=== PATIENT | male | born 1975 | race Caucasian/White ===

== ENCOUNTER 2021-03-12 17:13 | Emergency (ER) | payer BC ==
--- NOTE | 2021-03-12 17:56 | EDM.PDOC ---
ED HPI GENERAL MEDICAL PROBLEM - General Chief Complaint: Head Injury Stated Complaint: HEAD INJURY Time Seen by Provider: 03/12/21 17:56 - History of Present Illness INITIAL COMMENTS - FREE TEXT/NARRATIVE: 45-year-old male presents the emergency room with persistent dizziness and some nausea following a head injury 7 days ago. Patient was instructing people on some fighting skills and the patient was taken down he hit his head pretty hard. He had no loss of consciousness but has had quite a bit of dizziness and some nausea with change of position turning his head mostly to the right. This has not been getting any better. Patient also has significant neck discomfort following this injury. He is not aware that he had significant neck pain immediately after this occurred. He has not had any neurologic symptoms associated with this his pain seems to be localized to his lower neck region. Patient is a smoker smokes about a pack a day Posterior Headache Pain Score (Numeric/FACES): 7 - Related Data Allergies Allergy/AdvReac Type Severity Reaction Status Date / Time No Known Allergies Allergy Verified 05/27/14 17:51 Home Meds: Home Meds . [No Known Home Meds] 03/12/21 [History] Past Medical History - Past Health History Medical/Surgical History: Denies Medical/Surgical History Neurological History: Reports: Concussion Other Neuro History: several - Infectious Disease History Infectious Disease History: Reports: Chicken Pox - Past Surgical History GI Surgical History: Reports: Appendectomy Social & Family History - Tobacco Use Tobacco Use Status *Q: Current Every Day Tobacco User Years of Tobacco use: 15 Packs/Tins Daily: 1 - Caffeine Use Caffeine Use: Reports: Coffee, Energy Drinks, Tea - Recreational Drug Use Recreational Drug Use: No - Living Situation & Occupation Living situation: Reports: Occupation: Employed ED ROS GENERAL - Review of Systems Review Of Systems: See Below Constitutional: Reports: No Symptoms HEENT: Reports: No Symptoms Respiratory: Reports: No Symptoms Cardiovascular: Reports: No Symptoms GI/Abdominal: Reports: Nausea. Denies: Abdominal Pain : Reports: No Symptoms Musculoskeletal: Reports: Neck Pain Neurological: Reports: Dizziness, Headache. Denies: Numbness, Paresthesia ED EXAM, HEAD INJURY - Physical Exam Exam: See Below Exam Limited By: No Limitations General Appearance: Alert, No Apparent Distress Head: Atraumatic, Normocephalic Nexus Criteria: Posterior, Midline Cervical Tenderness. No: Evidence of Intoxication, Altered Level of Consciousness, Focal Neurological Deficit, Painful Distraction Injuries Eyes: Bilateral Eye: Normal Inspection, PERRL Ears: Normal External Exam, Normal Canal, Hearing Grossly Normal, Normal TMs Nose: Normal Inspection, Normal Mucousa, No Blood Throat/Mouth: Normal Inspection, Normal Lips, Normal Teeth, Normal Gums, Normal Oropharynx, Normal Voice, No Airway Compromise Neck: Other (Venous significant midline discomfort in the lower cervical region. With bilateral paraspinous muscle spasm) Respiratory: No Respiratory Distress, Lungs Clear, Normal Breath Sounds Cardiovascular: Regular Rate, Rhythm, No Edema, No Murmur Neurologic: Other (Cranial nerves II through XII grossly intact all muscle groups the upper extremities are equal and appropriate bilaterally. Patient does have some discomfort with motion of the base of the neck. However, this is thought to be soft tissue related) - [place] Coma Score Best Eye Response (Doc): (4) Open Spontaneously Best Verbal Response ([place]): (5) Oriented Best Motor Response ([place]): (6) Obeys Commands Course - Vital Signs Last Recorded V/S: Last Vital Signs Temp 36.8 C 03/12/21 17:19 Pulse 100 03/12/21 17:19 Resp 20 03/12/21 17:19 BP 146/93 H 03/12/21 17:19 Pulse Ox 97 03/12/21 17:19 - Orders/Labs/Meds Orders: Active Orders 24 hr Category Date Time Status Cervical Spine Comp wo Cont [MR] Stat Exams 03/12/21 18:14 Ordered Cervical Spine wo Cont [CT] Stat Exams 03/12/21 18:40 Ordered Head wo Cont [CT] Stat Exams 03/12/21 18:14 Ordered - Re-Assessments/Exams Free Text/Narrative Re-Assessment/Exam: 03/12/21 21:19 T is negative for acute changes. Cervical spine shows significant degenerative changes at the base of the neck refer to CT report for this also of note is a right lung apices lesion that needs follow-up this was discussed in detail and the importance of follow-up with the patient and significant partner. We discussed treatment options for the dizziness and intermittent nausea the patient would like to hold off on this at this time. Departure - Departure Time of Disposition: 20:59 Disposition: Home, Self-Care 01 Clinical Impression: Head injury, closed, with concussion, Cervical myofascial strain, Degenerative arthritis of cervical spine - Discharge Information Instructions: Concussion, Adult, [id number] Referrals: PCP,None [Primary Care Provider] - Forms: ED Department Discharge Additional Instructions: Return to the emergency room with any questions problems worsening symptoms. Follow-up with a local healthcare provider you can follow-up with the hospital clinic early this next week for recheck on your concussion and also discussed the abnormality noted at the top of your right lung on the neck CT. It is recommended that you have a follow-up CT in 3 to 6 months. The phone number to the hospital clinic is [phone]. You may follow-up with your chiropractor as needed. Inform them you have some significant arthritis developing in your neck but no fracture is identified on this evening study the central canal caliber is well-maintained there is some developing stenosis on the right at C5-C6 and C6-C7 the most significant osteophyte formation is at C6-7 and to a lesser degree at C5-6. Avoid driving until your dizziness is resolved. Sepsis Event Note (ED) - Focused Exam Vital Signs: Vital Signs Temp Pulse Resp BP Pulse Ox 03/12/21 17:19 36.8 C 100 20 146/93 H 97 - My Orders Last 24 Hours: My Active Orders 03/12/21 18:14 Cervical Spine Comp wo Cont [MR] Stat Head wo Cont [CT] Stat 03/12/21 18:40 Cervical Spine wo Cont [CT] Stat - Assessment/Plan Last 24 Hours: My Active Orders 03/12/21 18:14 Cervical Spine Comp wo Cont [MR] Stat Head wo Cont [CT] Stat 03/12/21 18:40 Cervical Spine wo Cont [CT] Stat
--- NOTE | 2021-03-13 08:36 | CT ---
Head CT Technique: Multiple axial sections through the brain were obtained. Intravenous contrast was not utilized. Reconstructed coronal and sagittal images were obtained. Comparison: No prior intracranial imaging is available. Findings: Ventricles along with basal cisterns and sulci over the convexities are within normal limits for the patient's age. No abnormal parenchymal densities are seen. No evidence of intracranial hemorrhage is present. Bone window settings were reviewed. Mucosal thickening is noted within both maxillary sinuses as well as ethmoid sinuses and frontal sinuses. Mild mucosal thickening is noted within the sphenoid sinuses. No acute calvarial abnormality is appreciated. Visualized mastoid sinuses are also clear. Impression: 1. Sinus findings most likely representing chronic sinusitis. Please correlate. 2. No acute intracranial abnormality is appreciated. Diagnostic code #2 I agree with preliminary report from [facility], finalized on 03/12/21, 8:36 PM CDT, code 1
--- NOTE | 2021-03-13 08:45 | CT ---
CT cervical spine Technique: Multiple axial sections were obtained from above the C1 level inferiorly through the T3 level. Reconstructed coronal and sagittal images were obtained. Comparison: No prior cervical spine imaging is available. Findings: Mucosal thickening is seen within the maxillary sinuses and sphenoid sinus. Visualized mastoid sinuses show nothing acute. Moderate disc space narrowing is noted at C6-7 and mild disc space narrowing at C5-6. Anterior osteophytes are noted at C4-5 through C6-7 as well as at T1-2. T1-2 disc also shows slight posterior osteophytes. MIld posterior osteophytes are also noted at C5-6 and moderate at C6-7. No bony central canal stenosis is seen. There is moderate right-sided neural foraminal stenosis noted at C5-6. Other neural foramina are felt to be fairly well patent. No fracture is seen. No abnormal subluxation is seen. Partially visualized groundglass opacity noted within the right upper lung. Impression: 1. Partially visualized groundglass opacity within the right upper lung. Small area of pneumonia or pulmonary contusion is possible. Difficult to exclude an area of neoplasm as well. Please correlate with the patient's symptoms. Follow-up noncontrast chest CT study is recommended in 3-6 months to make sure this does not persist. 2. Mild degenerative change as described above. 3. No acute abnormality is identified on CT study of the cervical spine. 4. Sinus disease which is most likely chronic. Diagnostic code #9 I agree with preliminary report from [facility], finalized on 03/12/21, 8:45 PM CDT, code 1
== END 2021-03-12 21:20 | disposition home or self-care (01) ==
LOC: JD.ED 17:13
DX: S06.0X0A Concussion without loss of consciousness, initial encounter (principal); S16.1XXA Strain of muscle, fascia and tendon at neck level, initial encounter; M50.30 Other cervical disc degeneration, unspecified cervical region; F17.210 Nicotine dependence, cigarettes, uncomplicated; W22.8XXA Striking against or struck by other objects, initial encounter
CPT/HCPCS: 70450; 70450-26; 72125; 72125-26; 99284-25

== ENCOUNTER 2021-06-09 09:58 | Emergency (ER) | payer BC ==
[2021-06-09] MEDS ORDERED: Ketorolac 15 MG/ML SDV IVPUSH ONE (10:28)
[2021-06-09] MEDS ORDERED: Lactated Ringers 1,000 ML IV ONE (10:29)
[2021-06-09 11:40] LABS: CORONAVIRUS COVID-19 NAA POSITIVE (NEGATIVE)
== END 2021-06-09 12:45 | disposition home or self-care (01) ==
LOC: JD.ED 09:58
DX: U07.1 COVID-19 (principal); Z72.0 Tobacco use
CPT/HCPCS: 0241U; 36415; 70450; 80053; 81001; 82553; 85025; 96374; 99285; J1885; J7120; 99284